=== PATIENT | female | born 1980 | race Caucasian/White ===

== ENCOUNTER → 2024-05-15 17:02 | Outpatient (REF) | payer OTHER, SELFPAY | LOC: WDC 17:02 | PROVIDERS: ATTENDING PHYSICIAN Obstetrics & Gynecology; FAMILY PHYSICIAN Internal Medicine | DX: Z12.31 Encounter for screening mammogram for malignant neoplasm of breast (principal) | CPT/HCPCS: 77063; 77067 ==

== ENCOUNTER → 2024-06-13 16:04 | Outpatient (REF) | payer OTHER, SELFPAY | LOC: RAD 16:04 | PROVIDERS: ATTENDING PHYSICIAN Internal Medicine | DX: M67.449 Ganglion, unspecified hand (principal) | CPT/HCPCS: 73120 ==

== ENCOUNTER → 2024-06-21 12:40 | Outpatient (REF) | payer OTHER, SELFPAY | LOC: WDC 12:40 | PROVIDERS: ATTENDING PHYSICIAN Obstetrics & Gynecology | DX: R92.30 Dense breasts, unspecified (principal) | CPT/HCPCS: 76641 ==